=== PATIENT | female | born 1965 | race Caucasian/White ===

== ENCOUNTER 2024-04-01 08:50 | Outpatient (CLI) | payer BC | END 2024-04-01 08:51 | disposition home or self-care (01) | LOC: CSHMAMMO 08:50 | PROVIDERS: ATTEND Physician Assistant | DX: Z12.31 Encounter for screening mammogram for malignant neoplasm of breast (principal); Z80.3 Family history of malignant neoplasm of breast | CPT/HCPCS: 77063; 77067 ==

== ENCOUNTER 2024-12-18 12:16 | Outpatient (CLI) | payer BC | END 2024-12-18 12:17 | disposition home or self-care (01) | LOC: CSHULT 12:16 | PROVIDERS: ATTEND Physician Assistant | DX: E05.90 Thyrotoxicosis, unspecified without thyrotoxic crisis or storm (principal); E07.9 Disorder of thyroid, unspecified; E04.2 Nontoxic multinodular goiter | CPT/HCPCS: 76536 ==

== ENCOUNTER 2025-04-02 09:44 | Outpatient (CLI) | payer BC | END 2025-04-02 09:45 | disposition home or self-care (01) | LOC: CSHMAMMO 09:44 | PROVIDERS: ATTEND Physician Assistant | DX: Z12.31 Encounter for screening mammogram for malignant neoplasm of breast (principal); Z80.3 Family history of malignant neoplasm of breast | CPT/HCPCS: 77063; 77067 ==